=== PATIENT | female | born 1990 | race Caucasian/White ===

== ENCOUNTER 2018-03-09 12:22 | Observation (INO) | payer OTHER ==
[2018-03-09] MEDS ORDERED: BETAMETHASONE IM SYRINGE IM ONE (17:27)
--- NOTE | 2018-03-09 18:00 | GCON ---
[f rep st] CONSULTATION DATE OF CONSULTATION: 03/09/2018 REASON FOR CONSULTATION: [place] contractions and decreased movement. HISTORY OF PRESENT ILLNESS: Patient is a 27-year-old 1, para 0, who is 31 weeks gestation, dated by last menstrual period consistent with a 1st trimester ultrasound. Patient initiated care at [facility] at 9 weeks' gestation. She has had unremarkable until now. She had a normal anatomy ultrasound at 20 weeks, and at 30 weeks' gestation, she transferred to the [facility]. Patient went to [place], [place], this weekend for her baby shower. On her way back, she began having increased [place] contractions. She waited in the security line for an hour, ultimately missing her plane, so she was put on a later plane in the evening and did not get home until late last night. The patient began having increasing [place]illiam contractions and has been hydrating well since returning home last night. However, this morning she did notice decreased movement and so called the [facility] and came in for evaluation. The patient had an NST at the [facility] which was nonreactive, so she was sent over to Labor and Delivery for further evaluation and surveillance. Her nonstress test here on Labor and Delivery was nonreactive, had minimal variability and occasional small decelerations. We attempted to do a biophysical profile on the floor. However, the ultrasound machine was not working so she was sent down to [facility] for a BPP and consultation. At that time, diagnosis of hydrops was made, and recommendation for patient to be transferred to [facility] was made. The patient is currently being informed of those findings, and we will arrange for transfer to [facility] once she is back up on the floor. 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 Patient has had a history of pyelo x1. The patient has DHA. She had been on Lexapro in early but has discontinued that. SURGICAL HISTORY: [place] tooth extraction, endoscopy. ALLERGIES: No known drug allergies. She has allergy to tree nuts. SOCIAL HISTORY: Patient is . She works at [employer]. She denies tobacco, alcohol, or drug use. FAMILY MEDICAL HISTORY: Noncontributory. LINE INSPECTOR HISTORY: Menarche age 14. Periods every 20-31 days lasting 3 days. She is a 1, para 0. Current has been uncomplicated until this visit. The patient does have a remote history of abnormal Pap smears but no procedures done. A repeat Pap smear was just done and no procedures were done on her cervix. She denies any history of any sexually transmitted diseases. REVIEW OF SYSTEMS: 10-point review of systems is negative with exception of the above-mentioned pertinent positives. She has had decreased movement. She denies any loss of fluid or any vaginal bleeding. She denies any headache or changes in vision. She has had [place] Gilliam contractions. PHYSICAL EXAMINATION: VITAL SIGNS: Stable. GENERAL APPEARANCE: Alert and oriented x3. PSYCH: Exam is appropriate affect. NECK: Mobile and supple. HEART: Rate is regular regular. LUNGS: Clear to auscultation bilaterally. ABDOMEN: Gravid, nondistended, nontender. EXTREMITIES: Reveal no calf tenderness or edema. MUSCULOSKELETAL: Grossly intact. NEUROLOGIC: Grossly intact. LABORATORY DATA: Blood type O positive. Antibody screen negative. Rubella immune. GBS is not done. HBsAg negative. HIV negative. She had a negative Verifi screen. ASSESSMENT AND PLAN: A 27-year-old 1, para 0, at 31 weeks' gestation, who presented for increased F[place] Gilliam contractions and decreased movement and was found to have hydrops per [facility] consultation and ultrasound. Patient will be given a dose of betamethasone and be transferred to [facility] for further management. [facility] was notified of the patient's status. /[id number]/MODL MTDD
== END 2018-03-09 19:30 | disposition short-term general hospital (02) ==
LOC: FLD 12:22
PROVIDERS: ADMIT Obstetrics & Gynecology; ATTEND Obstetrics & Gynecology
DX: O36.8130 Decreased fetal movements, third trimester, not applicable or unspecified (principal); O36.23X0 Maternal care for hydrops fetalis, third trimester, not applicable or unspecified; O47.03 False labor before 37 completed weeks of gestation, third trimester; Z3A.31 31 weeks gestation of pregnancy
CPT/HCPCS: 59025; 76811; 76818; 96372; G0378; J0702